=== PATIENT | male | born 1980 | race Caucasian/White ===

== ENCOUNTER 2017-10-05 12:17 | Emergency (ER) | payer SELFPAY ==
[2017-10-05 14:27] LABS: POC GLUCOSE 113 mg/dL (70-99)
== END 2017-10-05 14:35 | disposition home or self-care (01) ==
LOC: ER 12:17
DX: L03.116 Cellulitis of left lower limb (principal)
CPT/HCPCS: 82962; 99283

== ENCOUNTER 2017-12-10 14:38 | Emergency (ER) | payer SELFPAY | END 2017-12-10 16:00 | disposition home or self-care (01) | LOC: ER 16:00 | DX: S63.502A Unspecified sprain of left wrist, initial encounter (principal); W01.0XXA Fall on same level from slipping, tripping and stumbling without subsequent striking against object, initial encounter; Y93.89 Activity, other specified; Y92.89 Other specified places as the place of occurrence of the external cause; Y99.8 Other external cause status | CPT/HCPCS: 73110; 99284 ==